=== PATIENT | male | born 1995 ===

== ENCOUNTER 2018-06-20 19:21 | Emergency (ER) | payer SELFPAY ==
[2018-06-20] MEDS ORDERED: Vancomycin 1 g Inj ONE (19:46)
--- NOTE | 2018-06-20 19:55 | ED PDOC ---
Upper Extremity Pain/Injury Time Seen by Provider: 06/20/18 19:35 Chief Complaint (Nursing): Upper Extremity Problem/Injury Chief Complaint (Provider): Upper Extremity Problem/Injury History Per: Patient History/Exam Limitations: no limitations Onset/Duration Of Symptoms: Days (x 3) Current Symptoms Are (Timing): Still Present Quality: "Pain" Additional Complaint(s): 22 year old male presents to the ED with a pimple on the posterior aspect of his right elbow associated with swelling, onset 3 days ago. Patient reports a history of similar symptoms in the past that were treated using antibiotics in the [place]. Denies fever. Tetanus UTD. PMD: none provided Past Medical History Reviewed: Historical Data, Nursing Documentation, Vital Signs Vital Signs: Last Vital Signs Temp 96.9 F L 06/20/18 19:31 Pulse 79 06/20/18 19:31 Resp 18 06/20/18 19:31 BP 134/70 06/20/18 19:31 Pulse Ox 99 06/20/18 19:31 - Medical History PMH: No Chronic Diseases - Family History Family History: States: Unknown Family Hx - Home Medications Home Medications: Ambulatory Orders Medication Instructions Recorded Cephalexin [Keflex] 500 mg PO QID #28 capsule 06/20/18 Sulfamethoxazole/Trimethoprim 2 tab PO BID #28 tab 06/20/18 [Bactrim DS 800 mg-160 mg] - Allergies Allergies/Adverse Reactions: Allergies Allergy/AdvReac Type Severity Reaction Status Date / Time No Known Allergies Allergy Verified 06/20/18 19:31 Review of Systems ROS Statement: Except As Marked, All Systems Reviewed And Found Negative Constitutional: Negative for: Fever Skin: Positive for: Other (pimple on right elbow with increased swelling) Physical Exam - Reviewed Nursing Documentation Reviewed: Yes Vital Signs Reviewed: Yes - Physical Exam Appears: Positive for: Non-toxic, No Acute Distress Head Exam: Positive for: ATRAUMATIC, NORMAL INSPECTION, NORMOCEPHALIC Skin: Positive for: Normal Color, Warm, Dry Eye Exam: Positive for: EOMI, Normal appearance, PERRL Neck: Positive for: Normal, Painless ROM, Supple Cardiovascular/Chest: Positive for: Regular Rate, Rhythm. Negative for: Murmur Respiratory: Positive for: CNT, Normal Breath Sounds Gastrointestinal/Abdominal: Positive for: Normal Exam, Soft Extremity: Positive for: Normal ROM (able to flex and extend elbow without difficulty ), Swelling (moderate swelling surrounding induration with minimal erythema noted), Other (2.75 cm region of induration noted) Neurologic/Psych: Positive for: Alert, Oriented (x 3). Negative for: Motor/ Sensory Deficits - ECG O2 Sat by Pulse Oximetry: 99 (RA) Pulse Ox Interpretation: Normal - Progress ED Course And Treament: verbal consent prior to procedure. abscess cleansed with betadiene. 18 Guage needle with attempted aspiration minimal serosanguinous fluid noted. dressed with nonadherent dressing. advised return to ED in 2-3 days for re-evaluation and I &D Medical Decision Making Medical Decision Makin:42 Plan: --Vancomycin 1 gm in NS IVPB Scribe Attestation: Documented by Leslie Bentley, acting as a scribe for Ash Wang PA-C Provider Scribe Attestation: All medical record entries made by the Scribe were at my direction and personally dictated by me. I have reviewed the chart and agree that the record accurately reflects my personal performance of the history, physical exam, medical decision making, and the department course for this patient. I have also personally directed, reviewed, and agree with the discharge instructions and disposition. Disposition - Clinical Impression Clinical Impression: Abscess, Cellulitis of right elbow - Patient ED Disposition Is Patient to be Admitted: No - Disposition Disposition: Routine/Home Disposition Time: 21:24 Condition: FAIR Additional Instructions: RETURN IN 2-3 DAYS FOR RE-EVALUATION OF RIGHT ELBOW. Prescriptions: Cephalexin [Keflex] 500 mg PO QID #28 capsule Sulfamethoxazole/Trimethoprim [Bactrim DS 800 mg-160 mg] 2 tab PO BID #28 tab Instructions: Cellulitis and Erysipelas (Skin Infections), Skin Abscess Forms: [facility] ED School/Work Excuse
[2018-06-20 21:41] VITALS: BP 119/95; PULSE 51; RESP 16; TEMP 99.1; O2SAT 100
== END 2018-06-20 21:41 | disposition home or self-care (01) ==
LOC: H.ER 19:21
DX: L03.113 Cellulitis of right upper limb (principal)

== ENCOUNTER 2018-06-21 14:32 | Inpatient (IN) | payer OTHER ==
[2018-06-21] MEDS ORDERED: Vancomycin 1 g Inj ONE (15:34)
--- NOTE | 2018-06-21 15:38 | ED PDOC ---
Upper Extremity Pain/Injury Time Seen by Provider: 06/21/18 14:37 Chief Complaint (Nursing): Upper Extremity Problem/Injury Chief Complaint (Provider): Right elbow swelling and pain History Per: Patient History/Exam Limitations: no limitations Onset/Duration Of Symptoms: Days (x1 week), Worse Since (this morning) Current Symptoms Are (Timing): Still Present Quality: Pressure Severity: Severe Pain Scale Rating Of: 9 Additional Complaint(s): Kiel Kerr, a 22 year old male with no significant past medical history, presents to the emergency room for evaluation of swelling and pain to his right elbow. Patient was seen in [facility] ED yesterday for similar symptoms and was treated with IV vancomycin and given a prescription of Keflex and Bactrim, which he has been compliant with since discharge. He notes that he noticed a pimple to his elbow 1 week ago that had been gradually enlarging. Patient reports multiple attempts at home to "pop" it were unsuccessful. Since an I&D was attempted in ED yesterday, he has had dramatically increased swelling and pain. Patient denies taking pain medication [employer], denies fever or chills. He reports significantly decreased range of motion to the joint since his ED visit yesterday. Patient has no other complaints at present. Patient's tetanus status is up to date. 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 PMD: none Past Medical History Reviewed: Historical Data, Nursing Documentation, Vital Signs Vital Signs: Last Vital Signs Temp 98.4 F 06/21/18 14:36 Pulse 66 06/21/18 14:36 Resp 16 06/21/18 14:36 BP 138/88 06/21/18 14:36 Pulse Ox 97 06/21/18 14:36 - Medical History PMH: No Chronic Diseases - Surgical History Surgical History: No Surg Hx - Family History Family History: States: Unknown Family Hx - Social History Drugs: Denies - Immunization History Hx Tetanus Toxoid Vaccination: Yes - Home Medications Home Medications: Ambulatory Orders Medication Instructions Recorded No Known Home Med 06/21/18 - Allergies Allergies/Adverse Reactions: Allergies Allergy/AdvReac Type Severity Reaction Status Date / Time No Known Allergies Allergy Verified 06/20/18 19:31 Review of Systems ROS Statement: Except As Marked, All Systems Reviewed And Found Negative Constitutional: Negative for: Fever, Chills Musculoskeletal: Positive for: Other (elbow pain, swelling) Physical Exam - Reviewed Nursing Documentation Reviewed: Yes Vital Signs Reviewed: Yes - Physical Exam Comments: GENERAL APPEARANCE: Patient is awake, alert, oriented x 3; uncomfortable appearing. Cradling right arm in flexion. SKIN: Warm, dry; (-) cyanosis. NECK: Supple, FROM RIGHT ELBOW: (+) diffuse tenderness, erythema and warmth (+) large effusion to right elbow. (-) distal neurovascular deficit. Small incision to posterior elbow with active purulent drainage. Significantly decreased ROM secondary to pain- unable to extend, supinate, or pronate; remainder of upper extremity: (- ) tenderness. Sensation and capillary refill intact. CHEST AND RESPIRATORY: (-) wheezing; (-) rales, (-) rhonchi, (-) rub; breath sounds equal bilaterally. Respirations even and nonlabored. HEART AND CARDIOVASCULAR: (-) irregularity NEURO AND PSYCH: Mental status as above. Gait: steady. Speech: clear. (-) facial asymmetry (-) aphasia - Laboratory Results Result Diagrams: 06/21/18 15:45 06/21/18 15:45 - ECG O2 Sat by Pulse Oximetry: 97 (RA) Pulse Ox Interpretation: Normal Medical Decision Making Medical Decision Making: Time: 14:37 Impression: abscess and cellulitis of right elbow Initial Plan: --IV access --CMP --CBC w/ differential --Partial thromboplastin time --Prothrombin time --Toradol 30 mg IVP --Blood culture --Wound culture --Xray elbow right 3 views --Re-evaluation 1525 -Consult with Dr. Barbour, orthopedic mental health practitioner due to concern for failed outpatient therapy. 16:00 -Consulted Dr. Barbour who recommends a CT of upper extremity, admission, and IV antibiotics. Dr Barbour expresses concern that patient was not referred to orthopedics yesterday during ED visit. -Consult placed to Dr Gill, medicine mental health practitioner. 1645 -Case discussed with Dr Gill, who is agreeable to admission. -CBC and CMP reviewed. No elevation of WBCs. Coag profile unremarkable. ESR: 8. -Patient agreeable to admission at this time. Arrangements made for admission. Vitals stable. 1705 XR reviewed, radiology report follows PROCEDURE: Radiographs of the right elbow. HISTORY: r/o osteomyelitis COMPARISON: None available. FINDINGS: BONES: Lucent line identified on a single view involving the radial cortex, likely vascular groove; correlate with physical exam to exclude point tenderness. The remainder the visualized osseous structures appear intact. JOINTS: No dislocation. SOFT TISSUES: Extensive severe soft tissue swelling. No evidence of radiopaque foreign body. JOINT EFFUSION: No significant joint effusion. OTHER FINDINGS: None. IMPRESSION: Extensive severe soft tissue swelling. Lucent line identified on a single view involving the radial cortex, likely vascular groove; correlate with physical exam to exclude point tenderness. Pending CT evaluation. [address] Barbour made aware of results at this time. Recommends NPO after midnight for OR in AM. 1934 CT reviewed, radiology report follows FINDINGS: Limitations: Lack of intravenous contrast. Bones/joints: No acute fracture. No dislocation. Few small well-corticated ossicles about joint along coronoid process and olecranon process. No definite cortical destruction/ erosions. No significant joint effusion (no elevation of fat pads). Soft tissues: Minimal skin thickening. Extensive edema/fluid within subcutaneous tissues. No discrete fluid collection within limits of examination. No soft tissue gas. IMPRESSION: 1. Soft tissue edema compatible with history of cellulitis. 2. No definite radiographic evidence of osteomyelitis or septic arthritis. If there remains clinical concern, consider MRI. Thank you for allowing us to participate in the care of your patient. Dictated and Authenticated by: Juan Alberto Newton MD 06/21/2018 7:34 PM Eastern Time ([place] & [place]) Dr Barbour made aware of CT results at this time. Scribe Attestation: Documented by Carmel Noe, acting as a scribe for Daniela Méndez PA-C. Provider Scribe Attestation: All medical record entries made by the Scribe were at my direction and personally dictated by me. I have reviewed the chart and agree that the record accurately reflects my personal performance of the history, physical exam, medical decision making, and the department course for this patient. I have also personally directed, reviewed, and agree with the discharge instructions and disposition. Disposition - Clinical Impression Clinical Impression: Abscess, elbow, Cellulitis of elbow - Patient ED Disposition Is Patient to be Admitted: Yes Discussed With : Everett Barbour III Doctor Will See Patient In The: Hospital Counseled Patient/Family Regarding: Studies Performed, Diagnosis - Disposition Disposition Time: 17:10 Condition: STABLE - Pt Status Changed To: Hospital Disposition Of: Inpatient - Admit Certification Admit to Inpatient:: After my assessment, the patient will require hospitalization for at least two midnights. This is because of the severity of symptoms shown, intensity of services needed, and/or the medical risk in this patient being treated as an outpatient. - POA Present On Arrival: None Results - Lab Results Lab Results: 06/21/18 06/21/18 06/21/18 16:25 15:45 15:45 WBC RBC Hgb Hct MCV MCH MCHC RDW Plt Count MPV Neut % (Auto) Lymph % (Auto) [place] % (Auto) Eos % (Auto) Baso % (Auto) Neut # (Auto) Lymph # (Auto) [place] # (Auto) Eos # (Auto) Baso # (Auto) ESR 8 PT 13.1 INR 1.2 APTT 31.2 Sodium 140 Potassium 4.4 Chloride 103 Carbon Dioxide 32 H Anion Gap 9 L BUN 14 Creatinine 1.0 Est GFR ( Amer) > 60 Est GFR (Non-Af Amer) > 60 Random Glucose 88 Calcium 9.3 Total Bilirubin 1.1 AST 22 ALT 25 Alkaline Phosphatase 65 Total Protein 7.2 Albumin 4.1 Globulin 3.1 Albumin/Globulin Ratio 1.3 06/21/18 15:45 WBC 10.5 RBC 4.28 L Hgb 14.1 Hct 40.2 MCV 93.9 MCH 32.8 H MCHC 35.0 RDW 12.5 Plt Count 187 MPV 9.3 Neut % (Auto) 74.1 Lymph % (Auto) 13.8 L [place] % (Auto) 11.6 H Eos % (Auto) 0.3 Baso % (Auto) 0.2 Neut # (Auto) 7.8 H Lymph # (Auto) 1.5 [place] # (Auto) 1.2 H Eos # (Auto) 0.0 Baso # (Auto) 0.0 ESR PT INR APTT Sodium Potassium Chloride Carbon Dioxide Anion Gap BUN Creatinine Est GFR ( Amer) Est GFR (Non-Af Amer) Random Glucose Calcium Total Bilirubin AST ALT Alkaline Phosphatase Total Protein Albumin Globulin Albumin/Globulin Ratio
[2018-06-21 16:11] LABS: ALB/GLOB RATIO 1.3 (1.0-2.1); ALBUMIN 4.1 g/dL (3.5-5.0); ALT/SGPT 25 U/L (21-72); AST/SGOT 22 U/L (17-59); BLOOD UREA NITROGEN 14 mg/dl (9-20); CALCIUM 9.3 mg/dL (8.4-10.2); GFR NON-AFRICAN AMERICAN > 60; INR 1.2; PROTHROMBIN TIME 13.1 Seconds (9.8-13.1)
[2018-06-21 16:13] LABS: BASO % 0.2 % (0.0-2.0); EOS % 0.3 % (0.0-4.0); HEMOGLOBIN 14.1 g/dL (12.0-18.0); LYMPH # 1.5 K/uL (1.0-4.3); LYMPH % 13.8 % (20.0-40.0); MEAN CELL VOLUME 93.9 fl (80.0-94.0); MEAN CORPUSCULAR HEMOGLOBIN 32.8 pg (27.0-31.0); MEAN PLATELET VOLUME 9.3 fl (7.2-11.7); MONO # 1.2 K/uL (0.0-0.8); MONO % 11.6 % (0.0-10.0); NEUT # 7.8 K/uL (1.8-7.0); NEUT % 74.1 % (50.0-75.0); NRBC % 0.1 % (0.0-0.0); RBC 4.28 Mil/uL (4.40-5.90); RED CELL DISTRIBUTION WIDTH 12.5 % (11.5-14.5); WHITE BLOOD COUNT 10.5 K/uL (4.8-10.8)
[2018-06-21 16:14] LABS: PARTIAL THROMBOPLASTIN TIME 31.2 Seconds (25.6-37.1)
--- NOTE | 2018-06-21 17:02 | RAD ---
PROCEDURE: Radiographs of the right elbow. HISTORY: r/o osteomyelitis COMPARISON: None available. FINDINGS: BONES: Lucent line identified on a single view involving the radial cortex, likely vascular groove; correlate with physical exam to exclude point tenderness. The remainder the visualized osseous structures appear intact. JOINTS: No dislocation. SOFT TISSUES: Extensive severe soft tissue swelling. No evidence of radiopaque foreign body. JOINT EFFUSION: No significant joint effusion. OTHER FINDINGS: None. IMPRESSION: Extensive severe soft tissue swelling. Lucent line identified on a single view involving the radial cortex, likely vascular groove; correlate with physical exam to exclude point tenderness.
[2018-06-22] MEDS ORDERED: Lidocaine 4% (Laryng-O-Jet) Kit MM ONE (06:40)
[2018-06-22] MEDS ORDERED: Propofol 10 mg/ml Inj (20 ML) ONE (06:40)
[2018-06-22] MEDS ORDERED: Rocuronium 10 mg/ml (5 ml) ONE (06:40)
[2018-06-22] MEDS ORDERED: Succinylcholine 200 mg/10 ml Inj IV ONE (06:40)
[2018-06-22] MEDS ORDERED: Dexamethasone 4 mg/1 ml ONE (06:43)
[2018-06-22] MEDS ORDERED: Bupivacaine HCl 0.5% PF (30 ml) Inj ONE (07:04)
[2018-06-22] MEDS ORDERED: Bacitracin Ointment 30 GM TUBE ONE (07:06)
[2018-06-22] MEDS ORDERED: GELATIN SPONGE,ABSORB/PORCINE 1 EACH SPONGE TP ONE (07:06)
[2018-06-22] MEDS ORDERED: EPINEPHrine 1 mg/ml (1:1000) Inj ONE (07:07)
[2018-06-22] MEDS ORDERED: Thrombin Topical 5,000 Int Units Spray Kit ONE (07:07)
[2018-06-22] MEDS ORDERED: Midazolam 2 MG/2 ML VIAL ONE ×2 (07:32→07:37)
--- NOTE | 2018-06-22 07:44 | CP.PCM.CON ---
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 pt presentys with drainage R elbow, olecranon bursa. Pt seen in ER Thursday treated and released and told to return to ER. Pt presents to ER yesterday with worsening of elbow. Pt dates HPI to two months prior when he abraded his elbow in [place]- pt treated with dermabond at [facility] and [facility]- never completely resolved Ptto be taken to OR this AM- dfor imncision drainage and elbow arthroscopy. possibility of later secondary surgeyr discussed; no promises/guarantees. Pt had at least 1 wk hx of swelling, paon and drainage prior to presenting to ER yesterday Past Patient History - Past Medical History & Family History Past Medical History?: No - Past Social History Drugs: Denies - MUSCULOSKELETAL/RHEUMATOLOGICAL Hx Falls: No - PSYCHIATRIC Hx Substance Use: No - SURGICAL HISTORY Hx Surgeries: No - ANESTHESIA Hx Anesthesia: No Meds Allergies/Adverse Reactions: Allergies Allergy/AdvReac Type Severity Reaction Status Date / Time No Known Allergies Allergy Verified 06/20/18 19:31 - Medications Medications: Current Medications Acetaminophen (Tylenol 325mg Tab) 650 mg PO Q6 PRN PRN Reason: Pain, moderate (4-7) Last Admin: 06/22/18 01:51 Dose: 650 mg Vancomycin HCl 1 gm/ Sodium (Chloride) 250 mls @ 250 mls/hr IVPB Q12H [id number] PRN Reason: Protocol Last Admin: 06/22/18 03:45 Dose: 250 mls/hr Physical Exam - Additional Findings Additional findings: systemic- wnl;please referto Dr Gill's hx and physiacal Musculoskekltal stance/gait- defrred pt with restricted ROM R elbow +erythema/ restricted ROM R elbow pt with well healed scars distal to point of olecrananon pt with draining olecranon bursa +erythema + swelling R elbow Results - Vital Signs Recent Vital Signs: Last Vital Signs Temp 98.7 F 06/22/18 06:00 Pulse 77 06/22/18 06:00 Resp 19 06/22/18 06:00 BP 124/60 06/22/18 06:00 Pulse Ox 97 06/22/18 06:00 - Labs Result Diagrams: 06/21/18 15:45 06/21/18 15:45 Labs: Laboratory Results - last 24 hr 06/21/18 06/21/18 06/21/18 15:45 15:45 15:45 WBC 10.5 RBC 4.28 L Hgb 14.1 Hct 40.2 MCV 93.9 MCH 32.8 H MCHC 35.0 RDW 12.5 Plt Count 187 MPV 9.3 Neut % (Auto) 74.1 Lymph % (Auto) 13.8 L [place] % (Auto) 11.6 H Eos % (Auto) 0.3 Baso % (Auto) 0.2 Neut # (Auto) 7.8 H Lymph # (Auto) 1.5 [place] # (Auto) 1.2 H Eos # (Auto) 0.0 Baso # (Auto) 0.0 ESR PT 13.1 INR 1.2 APTT 31.2 Sodium 140 Potassium 4.4 Chloride 103 Carbon Dioxide 32 H Anion Gap 9 L BUN 14 Creatinine 1.0 Est GFR ( Amer) > 60 Est GFR (Non-Af Amer) > 60 Random Glucose 88 Calcium 9.3 Total Bilirubin 1.1 AST 22 ALT 25 Alkaline Phosphatase 65 Total Protein 7.2 Albumin 4.1 Globulin 3.1 Albumin/Globulin Ratio 1.3 06/21/18 16:25 WBC RBC Hgb Hct MCV MCH MCHC RDW Plt Count MPV Neut % (Auto) Lymph % (Auto) [place] % (Auto) Eos % (Auto) Baso % (Auto) Neut # (Auto) Lymph # (Auto) [place] # (Auto) Eos # (Auto) Baso # (Auto) ESR 8 PT INR APTT Sodium Potassium Chloride Carbon Dioxide Anion Gap BUN Creatinine Est GFR ( Amer) Est GFR (Non-Af Amer) Random Glucose Calcium Total Bilirubin AST ALT Alkaline Phosphatase Total Protein Albumin Globulin Albumin/Globulin Ratio - Impressions Impression: Xray/ CT scan results noted - no evidence for osteomyelitis; fusiform swelling, with evidenc eof collection posterior aspect elbow(olecranon bursa) Assessment & Plan - Assessment and Plan (Free Text) Assessment: A-1) septic olecranon bursa 2) septic R elbow P- to OR fgor incision/drainage olecranono to OR for surg arthroscopy R elbow
[2018-06-22] MEDS ORDERED: Lactated Ringer's 1,000 ML IV ONE ×2 (08:10→08:45)
[2018-06-22] MEDS ORDERED: Lidocaine/Epi 1% 1:100000 20 ML IJ ONE (08:10)
[2018-06-22] MEDS ORDERED: Neostigmine 1:1000 (1 mg/ml) Inj ONE (08:31)
[2018-06-22 08:39] LABS: FLUID TYPE SYNOVIAL FLUID
--- NOTE | 2018-06-22 09:07 | CP.PCM.HP ---
History of Present Illness - History of Present Illness History of Present Illness: Pt was seen and examined at bedside with Dr. Gill 22 yo M with no sig pmhx presented to the ED with pain and swelling of R elbow. Recently seen at [facility] ER and treated with vanc and d/c on keflexa nd bactrim. However, symptoms did not improve. ED: XR revealed soft tissue swelling. CT: Cellulitis at dorsal and volar medial soft tissue. No periosteal changes or erosion to suggest osteomyelitis. No joint effusions. Degenerative calcifications or old avulsion/chip fracture sof posterior humeral ulnar joint. Ortho: Dr. Barbour consulted PMD: none pmhx: none Famhx: none surg: none soc: denies smoking, alcohol, illicit drugs Lives with father NKDA Present on Admission - Present on Admission Any Indicators Present on Admission: No History of DVT/PE: No History of Uncontrolled Diabetes: No Urinary Catheter: No Review of Systems - Constitutional Constitutional: As Per HPI - Cardiovascular Cardiovascular: absent: Chest Pain - Respiratory Respiratory: absent: Cough, Dyspnea - Gastrointestinal Gastrointestinal: absent: Abdominal Pain - Musculoskeletal Musculoskeletal: Deformity (R elbow pain.) - Neurological Neurological: absent: Abnormal Gait Past Patient History - Past Medical History & Family History Past Medical History?: No - Past Social History Smoking Status: Never Smoked Alcohol: None Drugs: Denies Home Situation {Lives}: With Family - CARDIAC Hx Cardiac Disorders: No - PULMONARY Hx Respiratory Disorders: No - NEUROLOGICAL Hx Neurological Disorder: No - HEENT Hx HEENT Problems: No - RENAL Hx Chronic Kidney Disease: No - ENDOCRINE/METABOLIC Hx Endocrine Disorders: No - HEMATOLOGICAL/ONCOLOGICAL Hx Blood Disorders: No - INTEGUMENTARY Hx Dermatological Problems: No - MUSCULOSKELETAL/RHEUMATOLOGICAL Hx Falls: No - GASTROINTESTINAL Hx Gastrointestinal Disorders: No - GENITOURINARY/GYNECOLOGICAL Hx Genitourinary Disorders: No - PSYCHIATRIC Hx Psychophysiologic Disorder: No Hx Substance Use: No - SURGICAL HISTORY Hx Surgeries: No - ANESTHESIA Hx Anesthesia: No Meds Allergies/Adverse Reactions: Allergies Allergy/AdvReac Type Severity Reaction Status Date / Time No Known Allergies Allergy Verified 06/20/18 19:31 Physical Exam - Constitutional Appears: Non-toxic - Eye Exam Eye Exam: EOMI - Respiratory Exam Respiratory Exam: Clear to Auscultation Bilateral, NORMAL BREATHING PATTERN. absent: Wheezes - Cardiovascular Exam Cardiovascular Exam: REGULAR RHYTHM, +S1, +S2 - GI/Abdominal Exam GI & Abdominal Exam: Normal Bowel Sounds, Soft. absent: Tenderness - Neurological Exam Neurological exam: Alert, CN II-XII Intact, Oriented x3 - Psychiatric Exam Psychiatric exam: Normal Affect, Normal Mood Results - Vital Signs Recent Vital Signs: Last Vital Signs Temp 98.7 F 06/22/18 06:00 Pulse 77 06/22/18 06:00 Resp 19 06/22/18 06:00 BP 124/60 06/22/18 06:00 Pulse Ox 97 06/22/18 06:00 - Labs Result Diagrams: 06/21/18 15:45 06/21/18 15:45 Labs: Laboratory Results - last 24 hr 06/21/18 06/21/18 06/21/18 15:45 15:45 15:45 WBC 10.5 RBC 4.28 L Hgb 14.1 Hct 40.2 MCV 93.9 MCH 32.8 H MCHC 35.0 RDW 12.5 Plt Count 187 MPV 9.3 Neut % (Auto) 74.1 Lymph % (Auto) 13.8 L [place] % (Auto) 11.6 H Eos % (Auto) 0.3 Baso % (Auto) 0.2 Neut # (Auto) 7.8 H Lymph # (Auto) 1.5 [place] # (Auto) 1.2 H Eos # (Auto) 0.0 Baso # (Auto) 0.0 ESR PT 13.1 INR 1.2 APTT 31.2 Sodium 140 Potassium 4.4 Chloride 103 Carbon Dioxide 32 H Anion Gap 9 L BUN 14 Creatinine 1.0 Est GFR ( Amer) > 60 Est GFR (Non-Af Amer) > 60 Random Glucose 88 Calcium 9.3 Total Bilirubin 1.1 AST 22 ALT 25 Alkaline Phosphatase 65 Total Protein 7.2 Albumin 4.1 Globulin 3.1 Albumin/Globulin Ratio 1.3 Fluid Type 06/21/18 06/22/18 16:25 08:30 WBC RBC Hgb Hct MCV MCH MCHC RDW Plt Count MPV Neut % (Auto) Lymph % (Auto) [place] % (Auto) Eos % (Auto) Baso % (Auto) Neut # (Auto) Lymph # (Auto) [place] # (Auto) Eos # (Auto) Baso # (Auto) ESR 8 PT INR APTT Sodium Potassium Chloride Carbon Dioxide Anion Gap BUN Creatinine Est GFR ( Amer) Est GFR (Non-Af Amer) Random Glucose Calcium Total Bilirubin AST ALT Alkaline Phosphatase Total Protein Albumin Globulin Albumin/Globulin Ratio Fluid Type Synovial fluid Assessment & Plan (1) Abscess, elbow Status: Acute (2) Cellulitis of right elbow Status: Acute - Assessment and Plan (Free Text) Plan: 22 yo M with no sig pmhx admitted for septic right elbow Orthopedic Surgeon: Dr. Barbour: Plan for Arhroscopy of elbow and debridement of septic elbow Continue with treatment/care plan as ordered Pt Medically optimized for surgery. Case dw Dr. Bridget Fung MD PGY2
--- NOTE | 2018-06-22 09:08 | PCM.SURG1 ---
Surgeon's Initial Post Op Note - Surgeon's Notes Surgeon: Km Cycle Consultant: 1st assist Ruslan Garcia, 2nd assist Javier Amaro Type of Anesthesia: General Endo Anesthesia Administered By: DR Slade Pre-Operative Diagnosis: septic R elbow. septic olecranon bursa Operative Findings: septic olecrananon bursa. spetic r elbow Post-Operative Diagnosis: septic r elbow. synvoitis R elbow. septic olecrananon bursa R elbow Operation Performed: arthroscopic synvoectomy R elbow. arthroscopic irrigation debridement R elbow. incision drainge R olecrananon bursa. partial bursectomy R elbow. irrigation/debridement r olecrananon bursa. excsisonm skin/ subcutaeous tissue and muscle. applx long arm posterior splint Specimen/Specimens Removed: synovium/skin subcutaneous [id number] muscle. olecrananon bursa (partial) Estimated Blood Loss: EBL {In ML}: 10 Blood Products Given: N/A Drains Used: No Drains Post-Op Condition: Good Date of Surgery/Procedure: 06/22/18 Time of Surgery/Procedure: 08:10 (time in room/anaesthesia induction time 730)
[2018-06-22] MEDS ORDERED: Desflurane Inhalation Anesthetic Liq (240 ml) ONE (09:13)
[2018-06-22] MEDS ORDERED: HYDROmorphone 0.5 mg/0.5 ml ISec IVP PRN (09:34)
--- NOTE | 2018-06-22 09:36 | CT ---
Date of service: 06/21/2018 PROCEDURE: RIGHT ELBOW CT WITHOUT CONTRAST HISTORY: concern for septic joint COMPARISON: Right elbow radiographs 06/21/2018. TECHNIQUE: A volumetric CT acquisition was performed through the right elbow without intravenous contrast as requested. Reformatted datasets provided in multiple planes using various algorithms. Contrast Dose: None Radiation dose:Total exam DLP = 169.35 mGy-cm. This CT exam was performed using one or more of the following dose reduction techniques: Automated exposure control, adjustment of the mA and/or kV according to patient size, and/or use of iterative reconstruction technique. FINDINGS: There are small bony elements identified posterior to the capitellum of the distal humerus which appear well corticated but are somewhat irregular in shape and are felt to represent heterotopic soft tissue or old chronic avulsion/ chip fracture fragments. No definitive acute fracture is appreciable. Degenerative osteophytes are seen local to it at the posterior margins of the humeral ulnar articulation. The radial head is intact. Prominent edema is seen at the dorsal as well as volar elbow soft tissues compatible with edema. No periosteal reaction or significant joint effusion appreciable. No elevation the anterior posterior fat pads. No retained main foreign body or emphysema soft tissue change. IMPRESSION: Cellulitis pattern is seen at the dorsal as well as volar medial soft tissues without periosteal changes or erosion to suggest osteomyelitis. No joint effusions are appreciable. Clinically correlate further. Degenerative calcifications or old avulsion/ chip fractures of the posterior humeral ulnar joint. No definite acute fracture or dislocation identified. Concordant preliminary report from [facility], 06/21/2018.
[2018-06-22 09:37] LABS: SF GROSS APPEARANCE TURBID (CLEAR); SYNOVIAL FLUID COMMENT MODERATELY BLOODY
[2018-06-22 09:38] LABS: SYNOVIAL FLUID MONO/MACROPHAGE 12 % (0-0)
--- NOTE | 2018-06-22 09:38 | PCM.ANESB4 ---
Infraclavicular Block - Femoral Nerve Block Date of Procedure: 06/22/18 Anesthesiologist: Jaya Pre-Procedure Diagnosis: Septic right elbow Post-Procedure Diagnosis: Same Procedure Performed: Brachial Plexus at the Infraclavicular area Right - Procedure Infraclavicular Block: The procedure was explained to the patient that it is for the post-operative pain management. Consent was obtained after a thorough discussion with the patient regarding the benefits and possible complications of local anesthetic block of the brachial plexus at the infraclavicular area. The patient was brought to the operating room and standard monitors were applied. Time-out was held with the circulating nurse to confirm the correct surgery and the appropriate block. After applying oxygen by nasal cannula and administering IV Sedation, patient's head was gently rotated away from the operative __right _ shoulder and the area medial to the coracoid process and inferior to the clavicle was carefully palpated. The ultrasound transducer was then applied to the skin in the transverse plane and the brachial plexus was visualized surrounding the axillary artery and deep to the pectoralis major and minor muscles. After thorough identification, this area was prepped with Chloraprep and 1 % Lidocaine was injected subcutaneously for topical anesthesia. At this point, a #21 gauge Stimuplex 4-inch needle was inserted cephalad to the ultrasound transducer and inferior to the clavicle in-plane towards the posterior aspect of the axillary artery. Needle advancement was performed carefully under ultrasound visualization. Nerve stimulator was used and twitch of the affected extremity including fingers, hand, wrist and elbow was obtained at current of __0.5___MA. After repeated negative aspiration, ___2__cc of __0.5_ __% ____bupivacaine with 1:200,000 epinephrine was injected and this was followed with _28 cc of __0.5 % ___bupivacaine with 1:200, 000 epinephrine . Under ultrasound guidance the local anesthetics were observed surrounding the cords of the brachial plexus. The needle was removed intact and sterile dressing was applied. The patient had stable vital signs, was conscious and in no apparent distress. The patient tolerated the infraclavicular block of the brachial plexus well with stable vital signs was prepared for subsequent surgery.
[2018-06-22] MEDS ORDERED: Lactated Ringer's 1,000 ML IV SCH (09:45)
--- NOTE | 2018-06-22 14:56 | OP ---
PROCEDURE DATE: 06/22/2018 PREOPERATIVE DIAGNOSES: 1. Septic right olecranon bursa. 2. Erupted pustule on the posterior aspect of the olecranon bursa. 3. Septic right elbow. POSTOPERATIVE DIAGNOSES: 1. Septic right olecranon bursa. 2. Erupted pustule on the posterior aspect of the olecranon bursa. 3. Septic right elbow. OPERATIVE FINDINGS: 1. Synovitis of the right elbow joint. 2. Sepsis of the right elbow joint. 3. Septic olecranon bursa. 4. Septic olecranon bursitis. PROCEDURES PERFORMED: 1. Surgical arthroscopy, extensive synovectomy of the right elbow joint, particularly the radiohumeral joint. 2. Surgical arthroscopy, incision and drainage of the right elbow arthroscopically. 3. Excision of subtotal right olecranon bursa. 4. Incision and drainage of the septic right olecranon bursa. 5. Excision of skin and subcutaneous tissue and muscle. 6. Application of Umberto Mckeon compression dressing and posterior splint. SURGEON: Everett Barbour MD FISH NET MAKER: TG Lopez, certified registered nursing starch treating assistant. SECOND ENGLISH HORN PLAYER: Javier Enriquez PA-C ANESTHESIA: General endotracheal anesthesia by Dr. Hardeep Lake. COMPLICATIONS: No complications. DRAINS: No drains. 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 It was treated courtside with no irrigation and with closure with Dermabond and antibiotics. The patient presented on Thursday to [facility] with an eruption and draining olecranon bursa. The patient was treated by the PHUONG and released and told to come back to the emergency room. The patient came back to the emergency room on Thursday and the patient was admitted as an emergency. The recent eruption of the olecranon bursa and the fusiform swelling of the right elbow is about eight days in progression and the initial injury of course happened two months ago in a basketball game in the [place]. OPERATIVE PROCEDURE: Pros, cons, risks and benefits of surgical approach were discussed at length with the patient. Possibility of mechanical failure, infection, secondary or tertiary surgery was discussed including nerve injury and possibility of stiffness were discussed. The patient can no longer withstand the discomfort and wished the surgery to be accomplished as an emergency. The patient was taken to Surgery at 06:00 a.m. and the surgery was begun promptly. After having obtained informed consent, after the satisfactory induction of general endotracheal anesthesia, after having identified side, site and procedure, critical pause/time-out, the patient identified as Kiel Kerr in the supine position with all bony prominences well padded. The right upper extremity was prepped and free draped in the usual fashion for upper extremity surgery. A tourniquet had been applied, but was not yet inflated. The olecranon bursa was incised and drained. Using #10 blade, an incision was carried out three fingerbreadths distal to the olecranon and three fingerbreadths proximal. The skin incision was carried down through the skin and subcutaneous tissue. There was found to be an immediate egress of pus. This was sent immediately for stat Gram stain, number of white cells per high-power field, aerobic, anaerobic, AFB and fungal cultures. At this point in time, an ellipse of skin, subcutaneous tissue and muscle were excised in the posterior aspect of the elbow. This having been accomplished, this was sent for specimen. At this point in time, the olecranon bursa, which was found to be septic, was identified and a subtotal olecranon bursectomy was accomplished using the knife. Great care was taken. At this point in time, the wound was thoroughly irrigated. Excision of skin and subcutaneous tissue and muscle had been accomplished. Subtotal bursectomy had been accomplished. Incision and drainage and culture and biopsy of the tissue were accomplished as well. At this point in time, with the elbow flexed and with the forearm pronated to avoid injury to the radial nerve, the radiohumeral joint was identified and three portals were accomplished using #18 gauge spinal needle, followed by #11 blade and followed by spreading. The location of the joint was found by pronation and supination. Great care was taken to be cognizant of the posterior interosseous branch of the radial nerve. This having been accomplished, the arthroscope was initially introduced. There was found to be aggressive synovitis. With the arthroscope in the radiohumeral joint, first in the inferior portal using the arthroscopic shaver, the 2.7 mm arthroscope was employed using the shaver, a partial synovectomy was accomplished. Partial synovectomy having been completed, with the arthroscope in the inferior portal, an aggressive synovectomy was accomplished. Great care was taken to avoid injury to any neurocirculatory structures. The portals were changed several times with the arthroscope introduced into each portal and synovectomy having been accomplished. After synovectomy was accomplished, thorough irrigation with the arthroscopic fluid was accomplished and attention was now turned back to the olecranon bursa incision and a thorough irrigation with antibiotic impregnated saline was accomplished. The wound was thoroughly irrigated. Closure of the bursa was done with interrupted Vicryl and nneka. The arthroscopic portals were closed with interrupted Vicryl and nylon. Umberto Mckeon compression dressing and posterior splint were applied. Everett Barbour MD
[2018-06-22] MEDS: Oxycodone/Acetaminophen 5/325 mg Tab PO PRN (20:09)
--- NOTE | 2018-06-22 21:05 | CP.PCM.PN ---
Subjective - Date & Time of Evaluation Date of Evaluation: 06/22/18 Time of Evaluation: 21:00 - Subjective Subjective: I D NOTE PATIENT EXAMINED .EMR REVIEWED ANTIBIOTICS ORDERED WILL NEED 4 TO 6WEEKS IV ANTIBIOTIC RX Objective - Vital Signs/Intake and Output Vital Signs (last 24 hours): Temp Pulse Resp BP Pulse Ox 97.3 F L 51 L 18 106/57 L 98 06/22/18 16:16 06/22/18 16:16 06/22/18 16:16 06/22/18 16:16 06/22/18 16:16 Intake and Output: 06/22/18 06/23/18 18:59 06:59 Intake Total 1700 Balance 1700 - Medications Medications: Current Medications Acetaminophen (Tylenol 325mg Tab) 650 mg PO Q6 PRN PRN Reason: Pain, moderate (4-7) Last Admin: 06/22/18 01:51 Dose: 650 mg Vancomycin HCl 1 gm/ Sodium (Chloride) 250 mls @ 250 mls/hr IVPB Q12H RIKKI PRN Reason: Protocol Last Admin: 06/22/18 18:30 Dose: 250 mls/hr Lactated Ringer's (Lactated Ringer's) 1,000 mls @ 100 mls/hr IV .Q10H RIKKI Cefepime HCl 1 gm/ Sodium (Chloride) 100 mls @ 100 mls/hr IVPB Q12 RIKKI PRN Reason: Protocol Morphine Sulfate (Morphine) 2 mg IVP Q4 PRN PRN Reason: Pain, severe (8-10) Oxycodone/Acetaminophen (Percocet 5/325 Mg Tab) 2 tab PO Q4 PRN PRN Reason: Pain, moderate (4-7) Stop: 06/25/18 10:30 Last Admin: 06/22/18 20:09 Dose: 2 tab - Labs Labs: 06/21/18 15:45 06/21/18 15:45 PT 13.1 Seconds (9.8-13.1) 06/21/18 15:45 INR 1.2 06/21/18 15:45 APTT 31.2 Seconds (25.6-37.1) 06/21/18 15:45
[2018-06-22] MEDS: Cefepime 1 GM in Sodium Chloride 0.9% 100 ML IVPB SCH (21:31)
[2018-06-23] MEDS: Oxycodone/Acetaminophen 5/325 mg Tab PO PRN ×3 (00:07→18:58)
--- NOTE | 2018-06-23 04:49 | CON ---
DATE: 06/22/2018 INFECTIOUS DISEASE CONSULT HISTORY OF PRESENT ILLNESS: He is a 22-year-old male who has no significant past medical history, who came to the emergency room with pain and swelling of the right elbow. He had apparently injured his elbow playing basketball, smashing his elbow on the backboard while in the [place]. While he was there, he had a laceration distal to the elbow, and it was apparently closed with surgical adhesive Did not have significant problems, but then when he came home, he noted he had some swelling of the elbow and pain and also noted a pustule on the elbow. He went to the emergency room and had some initial treatment and when he did not get better, he came back to the hospital and was admitted by the hospital. Today, he underwent surgery by Orthopedics, Dr. Barbour, and it was noted to have a septic right olecranon bursa, erupted pustule on the posterior aspect of the olecranon bursa and a septic right elbow with synovitis at the right elbow joint, sepsis of the right elbow joint. He had an arthroscopy with extensive synovectomy of the right elbow joint, particularly the right radial humeral joint. There was drainage of the right elbow also. PHYSICAL EXAMINATION: GENERAL: He is alert, cooperative, and oriented to time and place. HEENT: Within normal limits. NECK: Supple. LUNGS: Clear. HEART: Regular sinus rhythm. ABDOMEN: Soft. Positive bowel sounds. EXTREMITIES: The left upper extremity and both lower extremities are all within normal limits. The right upper extremity is with a surgical dressing. LABORATORY DATA: WBC is 10.5, hemoglobin 14, polys of 74, sed rate is 8, platelets of 187. Renal function is within normal limits. Cultures are pending. At the present time, we will treat him with vancomycin 1 g IV piggyback every 12 hours, and Maxipime 1 g IV piggyback every 12 hours. We will follow. Blanco Alvarado MD [facility]PITALRuslan
[2018-06-23 06:33] LABS: BASO % 0.1 % (0.0-2.0); HEMOGLOBIN 12.6 g/dL (12.0-18.0); LYMPH # 0.9 K/uL (1.0-4.3); LYMPH % 6.1 % (20.0-40.0); MEAN CELL VOLUME 94.7 fl (80.0-94.0); MEAN CORPUSCULAR HEMOGLOBIN 32.7 pg (27.0-31.0); MEAN CORPUSCULAR HGB CONC 34.6 g/dL (33.0-37.0); MEAN PLATELET VOLUME 9.9 fl (7.2-11.7); MONO # 1.6 K/uL (0.0-0.8); MONO % 10.4 % (0.0-10.0); NEUT # 12.5 K/uL (1.8-7.0); NEUT % 83.4 % (50.0-75.0); NRBC % 0.1 % (0.0-0.0); PLATELET COUNT 195 K/uL (130-400); RBC 3.84 Mil/uL (4.40-5.90); RED CELL DISTRIBUTION WIDTH 12.1 % (11.5-14.5)
[2018-06-23 06:44] LABS: BLOOD UREA NITROGEN 14 mg/dl (9-20); CALCIUM 9.1 mg/dL (8.4-10.2); GFR NON-AFRICAN AMERICAN > 60
--- NOTE | 2018-06-23 08:54 | CP.PCM.PN ---
Subjective - Date & Time of Evaluation Date of Evaluation: 06/23/18 Time of Evaluation: 07:30 - Subjective Subjective: Patient seen and examined at bedside comfortable. C/o soreness at surgical site otherwise pain controlled with meds. Able to be OOB without difficulties. Disappointed at possible inability to return to basketball season. Denies CP/SOB /dizziness. Objective - Vital Signs/Intake and Output Vital Signs (last 24 hours): Temp Pulse Resp BP Pulse Ox 97.6 F 71 19 122/66 99 06/23/18 08:15 06/23/18 08:15 06/23/18 08:15 06/23/18 08:15 06/23/18 08:15 Intake and Output: 06/23/18 06/23/18 06:59 18:59 Intake Total 1000 Balance 1000 - Medications Medications: Current Medications Acetaminophen (Tylenol 325mg Tab) 650 mg PO Q6 PRN PRN Reason: Pain, moderate (4-7) Last Admin: 06/22/18 01:51 Dose: 650 mg Vancomycin HCl 1 gm/ Sodium (Chloride) 250 mls @ 250 mls/hr IVPB Q12H RIKKI PRN Reason: Protocol Last Admin: 06/22/18 18:30 Dose: 250 mls/hr Lactated Ringer's (Lactated Ringer's) 1,000 mls @ 100 mls/hr IV .Q10H RIKKI Cefepime HCl 1 gm/ Sodium (Chloride) 100 mls @ 100 mls/hr IVPB Q12 RIKKI PRN Reason: Protocol Last Admin: 06/22/18 21:31 Dose: 100 mls/hr Morphine Sulfate (Morphine) 2 mg IVP Q4 PRN PRN Reason: Pain, severe (8-10) Last Admin: 06/23/18 02:27 Dose: 2 mg Oxycodone/Acetaminophen (Percocet 5/325 Mg Tab) 2 tab PO Q4 PRN PRN Reason: Pain, moderate (4-7) Stop: 06/25/18 10:30 Last Admin: 06/23/18 03:31 Dose: 2 tab - Labs Labs: 06/23/18 05:20 06/23/18 05:20 PT 13.1 Seconds (9.8-13.1) 06/21/18 15:45 INR 1.2 06/21/18 15:45 APTT 31.2 Seconds (25.6-37.1) 06/21/18 15:45 - Extremities Exam Additional comments: RUE: Posterior slint intact, elevated to IV pole sensation intact MN/UN/RN motor intact MN/UN/RN 2 sec cap refill Assessment and Plan (1) Septic olecranon bursitis of right elbow Assessment & Plan: POD #1 s/p R elbow I&D and arthroscopy -pain control -elevate to IV pole -abx as per ID, may need PICC -ER cultures reveal MRSA however this may be contaminant due to nature of collection in ER environment. Awaiting OR cultures which are more reliable. -OOB, PT/OT NWB RUE -above d/w Dr. Barbour in agreement Status: Acute
--- NOTE | 2018-06-23 09:14 | CP.PCM.PN ---
<AntonietaBradley - Last Filed: 06/23/18 14:35> Subjective - Date & Time of Evaluation Date of Evaluation: 06/23/18 Time of Evaluation: 07:30 - Subjective Subjective: Pt seen and examined at bedside with Dr. Gill. Denies acute events overnight Reports some discomfort at surgical site but tolerable Able to ambulate. tolerating po diet Objective - Vital Signs/Intake and Output Vital Signs (last 24 hours): Temp Pulse Resp BP Pulse Ox 97.6 F 71 19 122/66 99 06/23/18 08:15 06/23/18 08:15 06/23/18 08:15 06/23/18 08:15 06/23/18 08:15 Intake and Output: 06/23/18 06/23/18 06:59 18:59 Intake Total 1000 Balance 1000 - Medications Medications: Current Medications Acetaminophen (Tylenol 325mg Tab) 650 mg PO Q6 PRN PRN Reason: Pain, moderate (4-7) Last Admin: 06/22/18 01:51 Dose: 650 mg Vancomycin HCl 1 gm/ Sodium (Chloride) 250 mls @ 250 mls/hr IVPB Q12H RIKKI PRN Reason: Protocol Last Admin: 06/22/18 18:30 Dose: 250 mls/hr Lactated Ringer's (Lactated Ringer's) 1,000 mls @ 100 mls/hr IV .Q10H RIKKI Cefepime HCl 1 gm/ Sodium (Chloride) 100 mls @ 100 mls/hr IVPB Q12 RIKKI PRN Reason: Protocol Last Admin: 06/22/18 21:31 Dose: 100 mls/hr Morphine Sulfate (Morphine) 2 mg IVP Q4 PRN PRN Reason: Pain, severe (8-10) Last Admin: 06/23/18 02:27 Dose: 2 mg Oxycodone/Acetaminophen (Percocet 5/325 Mg Tab) 2 tab PO Q4 PRN PRN Reason: Pain, moderate (4-7) Stop: 06/25/18 10:30 Last Admin: 06/23/18 03:31 Dose: 2 tab - Labs Labs: 06/23/18 05:20 06/23/18 05:20 PT 13.1 Seconds (9.8-13.1) 06/21/18 15:45 INR 1.2 09/10/18 15:45 APTT 31.2 Seconds (25.6-37.1) 06/21/18 15:45 - Constitutional Appears: Well, No Acute Distress - Eye Exam Eye Exam: EOMI - Respiratory Exam Respiratory Exam: Clear to Ausculation Bilateral, NORMAL BREATHING PATTERN. absent: Wheezes - Cardiovascular Exam Cardiovascular Exam: REGULAR RHYTHM, +S1, +S2 - GI/Abdominal Exam GI & Abdominal Exam: Soft, Normal Bowel Sounds. absent: Tenderness - Extremities Exam Extremities Exam: absent: Calf Tenderness - Neurological Exam Neurological Exam: Alert, Awake, CN II-XII Intact, Oriented x3 - Psychiatric Exam Psychiatric exam: Normal Affect, Normal Mood Assessment and Plan (1) Abscess, elbow Status: Acute (2) Cellulitis of right elbow Status: Acute (3) Microcytic anemia Status: Acute - Assessment and Plan (Free Text) Plan: Ortho: Dr. Barbour on board Anemia noted: f/u iron studies for microcytic anemia Continue with current treatment/care plan as ordered ID: Dr. Alvarado Pt will need PICC line for possible 4-6 weeks of IVABX Case Dw Dr. Bridget Fung MD PGY2 <Hilton Gill - Last Filed: 06/24/18 07:40> Objective - Vital Signs/Intake and Output Vital Signs (last 24 hours): Temp Pulse Resp BP Pulse Ox 98.3 F 55 L 20 146/62 99 06/23/18 23:53 06/23/18 23:53 06/23/18 23:53 06/23/18 23:53 06/23/18 23:53 - Medications Medications: Current Medications Acetaminophen (Tylenol 325mg Tab) 650 mg PO Q6 PRN PRN Reason: Pain, moderate (4-7) Last Admin: 06/22/18 01:51 Dose: 650 mg Vancomycin HCl 1 gm/ Sodium (Chloride) 250 mls @ 250 mls/hr IVPB Q12H RIKKI PRN Reason: Protocol Last Admin: 06/24/18 05:51 Dose: 250 mls/hr Lactated Ringer's (Lactated Ringer's) 1,000 mls @ 100 mls/hr IV .Q10H RIKKI Cefepime HCl 1 gm/ Sodium (Chloride) 100 mls @ 100 mls/hr IVPB Q12 IRKKI PRN Reason: Protocol Last Admin: 06/23/18 20:49 Dose: 100 mls/hr Lactobacillus Acidophilus (Bacid Acidophilus) 1 cap PO BID RIKKI Last Admin: 06/23/18 18:58 Dose: 1 cap Morphine Sulfate (Morphine) 2 mg IVP Q4 PRN PRN Reason: Pain, severe (8-10) Last Admin: 06/23/18 15:40 Dose: 2 mg Oxycodone/Acetaminophen (Percocet 5/325 Mg Tab) 2 tab PO Q4 PRN PRN Reason: Pain, moderate (4-7) Stop: 06/25/18 10:30 Last Admin: 06/24/18 05:09 Dose: 2 tab - Labs Labs: 06/24/18 05:30 06/24/18 05:30 PT 13.1 Seconds (9.8-13.1) 06/21/18 15:45 INR 1.2 06/21/18 15:45 APTT 31.2 Seconds (25.6-37.1) 06/21/18 15:45 Assessment and Plan - Assessment and Plan (Free Text) Plan: Patient was personally seen and examined by me in rounds with residents. Available labs and diagnostic data reviewed. Case, Patient's condition and management plan discussed with residents in rounds. Agree with resident's progress note. Plan: As ordered.
[2018-06-23 09:37] LABS: IRON 23 ug/dL (49-181)
[2018-06-23] MEDS: Cefepime 1 GM in Sodium Chloride 0.9% 100 ML IVPB SCH ×2 (09:42→20:49)
[2018-06-23 09:46] LABS: % IRON SATURATION 9 % (20-55); TOTAL IRON BINDING CAPACITY 263 ug/dL (250-450)
[2018-06-23 10:34] LABS: LYMPHOCYTE 7 % (20-50); MONOCYTE 8 % (0-10); NEUTROPHIL 85 % (42-75); PLATELET ESTIMATE NORMAL (NORMAL); TOTAL CELLS COUNTED 100
[2018-06-23 11:39] LABS: ERYTHROCYTE SEDIMENTATION RATE 17 mm/hr (0-15)
[2018-06-23] MEDS ORDERED: Lidocaine 1% 5ml Abboject ONE (13:18)
[2018-06-23] MEDS: Lactobacillus Acidophilus 500 MU Cap PO SCH (18:58)
[2018-06-24] MEDS: Oxycodone/Acetaminophen 5/325 mg Tab PO PRN ×4 (01:34→15:57)
[2018-06-24 06:35] LABS: HEMOGLOBIN 12.1 g/dL (12.0-18.0); MEAN CELL VOLUME 95.4 fl (80.0-94.0); MEAN CORPUSCULAR HEMOGLOBIN 32.5 pg (27.0-31.0); MEAN CORPUSCULAR HGB CONC 34.1 g/dL (33.0-37.0); RBC 3.72 Mil/uL (4.40-5.90); RED CELL DISTRIBUTION WIDTH 12.1 % (11.5-14.5); WHITE BLOOD COUNT 7.8 K/uL (4.8-10.8)
[2018-06-24 06:51] LABS: BLOOD UREA NITROGEN 14 mg/dl (9-20); CALCIUM 8.8 mg/dL (8.4-10.2); GFR NON-AFRICAN AMERICAN > 60
[2018-06-24] MEDS: Lactobacillus Acidophilus 500 MU Cap PO SCH ×2 (09:49→16:01)
[2018-06-24] MEDS: Cefepime 1 GM in Sodium Chloride 0.9% 100 ML IVPB SCH (09:51)
--- NOTE | 2018-06-24 12:59 | VASCULAR ---
PROCEDURE: Date of procedure: 06/23/2018 Procedure: 1. Placement of a left arm PICC with ultrasound and fluoroscopic guidance, CPT 45148 2. PICC tip confirmation with spot radiograph and is in the superior vena cava Medications: 1 percent lidocaine Total Fluoro time: 21.7 seconds Radiation: 3.07 MGy EBL: 3 cc HISTORY: Infection requiring long-term IV antibiotics TECHNIQUE: Following informed consent and procedure time-out, the patient placed supine on the interventional table and the left arm prepped and draped in the usual sterile fashion. Ultrasound showed a patent and compressible left basilic vein. After the skin was anesthetized with lidocaine, the basilic vein was accessed with micro micropuncture technique using ultrasound guidance. A guidewire was then advanced under fluoroscopic guidance into the superior vena cava. An image documenting ultrasound guidance for vascular access was permanently saved. The length of a single-lumen 4 Fijian PICC was trimmed to 48 cm and advanced through a peel-away sheath. The PICC was position with tip of PICC confirm a spot radiograph the superior vena cava. The PICC was secured to the patient's skin. The PICC was flushed. A biopatch and sterile dressing was applied. IMPRESSION: Placement of a single-lumen 4 Fijian PICC left basilic vein trimmed to 48 cm. The tip of the PICC is confirmed with spot radiograph and is in the superior vena cava.
--- NOTE | 2018-06-24 13:23 | CP.PCM.PN ---
Subjective - Date & Time of Evaluation Date of Evaluation: 06/24/18 Time of Evaluation: 07:30 Objective - Vital Signs/Intake and Output Vital Signs (last 24 hours): Temp Pulse Resp BP Pulse Ox 97.6 F 86 20 113/73 99 06/24/18 08:40 06/24/18 08:40 06/24/18 08:40 06/24/18 08:40 06/24/18 08:40 - Medications Medications: Current Medications Acetaminophen (Tylenol 325mg Tab) 650 mg PO Q6 PRN PRN Reason: Pain, moderate (4-7) Last Admin: 06/22/18 01:51 Dose: 650 mg Vancomycin HCl 1 gm/ Sodium (Chloride) 250 mls @ 250 mls/hr IVPB Q12H RIKKI PRN Reason: Protocol Last Admin: 06/24/18 05:51 Dose: 250 mls/hr Lactated Ringer's (Lactated Ringer's) 1,000 mls @ 100 mls/hr IV .Q10H RIKKI Ertapenem 1 gm/ Sodium (Chloride) 100 mls @ 100 mls/hr IVPB DAILY RIKKI PRN Reason: Protocol Lactobacillus Acidophilus (Bacid Acidophilus) 1 cap PO BID RIKKI Last Admin: 06/24/18 09:49 Dose: 1 cap Morphine Sulfate (Morphine) 2 mg IVP Q4 PRN PRN Reason: Pain, severe (8-10) Last Admin: 06/23/18 15:40 Dose: 2 mg Oxycodone/Acetaminophen (Percocet 5/325 Mg Tab) 2 tab PO Q4 PRN PRN Reason: Pain, moderate (4-7) Stop: 06/25/18 10:30 Last Admin: 06/24/18 10:41 Dose: 2 tab - Labs Labs: 06/24/18 05:30 06/24/18 05:30 PT 13.1 Seconds (9.8-13.1) 06/21/18 15:45 INR 1.2 06/21/18 15:45 APTT 31.2 Seconds (25.6-37.1) 06/21/18 15:45 Assessment and Plan (1) Abscess, elbow Status: Acute (2) Cellulitis of right elbow Status: Acute (3) Microcytic anemia Status: Acute
--- NOTE | 2018-06-24 15:03 | CP.PCM.PCO ---
Assessment/Plan - Assessment/Plan Assessment (Free Text): Pt stable, dressing to RUE intact, able to move fingers, has full sensation. Dr. Alvarado made aware of wound culture results, pt to be discharged on Ertapenem 1gm daily and Vancomycin 1gm q12 x 6 weeks with weekly labs. Patient to f/u with Dr. Gill and Dr. Barbour in 1 week. Rx for abx given to CM who has made arrangements for home infusion. Cleared by Dr. Gill and Dr. Barbour for discharge. Pt aware of plan.
--- NOTE | 2018-06-24 15:04 | CP.PCM.PN ---
Subjective - Date & Time of Evaluation Date of Evaluation: 06/24/18 Time of Evaluation: 14:00 - Subjective Subjective: Patient seen and examined at bedside comfortable. Pain much improved since yesterday. No new complaints. Objective - Vital Signs/Intake and Output Vital Signs (last 24 hours): Temp Pulse Resp BP Pulse Ox 97.6 F 86 20 113/73 99 06/24/18 08:40 06/24/18 08:40 06/24/18 08:40 06/24/18 08:40 06/24/18 08:40 - Medications Medications: Current Medications Acetaminophen (Tylenol 325mg Tab) 650 mg PO Q6 PRN PRN Reason: Pain, moderate (4-7) Last Admin: 06/22/18 01:51 Dose: 650 mg Vancomycin HCl 1 gm/ Sodium (Chloride) 250 mls @ 250 mls/hr IVPB Q12H RIKKI PRN Reason: Protocol Last Admin: 06/24/18 05:51 Dose: 250 mls/hr Lactated Ringer's (Lactated Ringer's) 1,000 mls @ 100 mls/hr IV .Q10H [facility] Last Admin: 06/24/18 13:54 Dose: Not Given Ertapenem 1 gm/ Sodium (Chloride) 100 mls @ 100 mls/hr IVPB DAILY RIKKI PRN Reason: Protocol Last Admin: 06/24/18 13:51 Dose: 100 mls/hr Lactobacillus Acidophilus (Bacid Acidophilus) 1 cap PO BID RIKKI Last Admin: 06/24/18 09:49 Dose: 1 cap Morphine Sulfate (Morphine) 2 mg IVP Q4 PRN PRN Reason: Pain, severe (8-10) Last Admin: 06/23/18 15:40 Dose: 2 mg Oxycodone/Acetaminophen (Percocet 5/325 Mg Tab) 2 tab PO Q4 PRN PRN Reason: Pain, moderate (4-7) Stop: 06/25/18 10:30 Last Admin: 06/24/18 10:41 Dose: 2 tab - Labs Labs: 06/24/18 05:30 06/24/18 05:30 PT 13.1 Seconds (9.8-13.1) 06/21/18 15:45 INR 1.2 06/21/18 15:45 APTT 31.2 Seconds (25.6-37.1) 06/21/18 15:45 - Extremities Exam Additional comments: RUE: Posterior splint intact, elevated to IV pole sensation intact MN/UN/RN motor intact MN/UN/RN 2 sec cap refill Assessment and Plan (1) Septic olecranon bursitis of right elbow Assessment & Plan: POD #2 s/p R elbow I&D and arthroscopy -MRSA confirmed with OR cultures, IV abx as per ID x 4-6 weeks -PICC inserted today -OOB, PT/OT NWB RUE, maintain splint with sling -orthopedically stable for discharge today -follow up in office in 7-10 days -above d/w Dr. Barbour in agreement Status: Acute
--- NOTE | 2018-06-24 16:15 | CP.PCM.DIS ---
Provider - Provider Date of Admission: 06/21/18 17:10 Attending physician: Hilton Gill MD Time Spent in preparation of Discharge (in minutes): 20 Diagnosis - Discharge Diagnosis (1) Abscess, elbow Status: Acute (2) Cellulitis of right elbow Status: Acute (3) Microcytic anemia Status: Acute Hospital Course - Lab Results Lab Results: Micro Results 06/21/18 15:45 Blood-Venous Blood Culture - Preliminary NO GROWTH AFTER 3 DAYS 06/22/18 08:48 Elbow - Right Anaerobic Culture - Final NO ANAEROBES ISOLATED. 06/22/18 12:00 Elbow - Right Gram Stain - Final 06/22/18 12:00 Elbow - Right Anaerobic Culture - Final NO ANAEROBES ISOLATED. 06/22/18 12:00 Elbow - Right Wound Culture - Final Methicillin Resistant S Aureus 06/22/18 08:48 Other: Please Indicate Gram Stain - Final 06/22/18 08:48 Other: Please Indicate Body Fluid Culture - Final Staphylococcus Aureus 06/22/18 12:00 Elbow - Right Gram Stain - Final 06/22/18 12:00 Elbow - Right Wound Culture - Final Staphylococcus Aureus 06/22/18 12:00 Elbow - Right Gram Stain - Final 06/22/18 12:00 Elbow - Right Wound Culture - Final Staphylococcus Aureus 06/22/18 12:00 Elbow - Right Gram Stain - Final 06/22/18 12:00 Elbow - Right Wound Culture - Final Staphylococcus Aureus 06/22/18 12:00 Elbow - Right Gram Stain - Final 06/22/18 12:00 Elbow - Right Wound Culture - Final Staphylococcus Aureus 06/22/18 12:00 Elbow - Right Gram Stain - Final 06/22/18 12:00 Elbow - Right Wound Culture - Final Staphylococcus Aureus 06/22/18 12:00 Elbow - Right Gram Stain - Final 06/22/18 12:00 Elbow - Right Wound Culture - Final Staphylococcus Aureus 06/22/18 12:00 Elbow - Right Gram Stain - Final 06/22/18 12:00 Elbow - Right Wound Culture - Final Staphylococcus Aureus 06/22/18 08:30 Other: Please Indicate Mycobacterial Culture - Preliminary 06/21/18 16:00 Blood-Venous Blood Culture - Preliminary NO GROWTH AFTER 48 HOURS 06/21/18 15:45 Elbow - Right Gram Stain - Final 06/21/18 15:45 Elbow - Right Wound Culture - Final Methicillin Resistant S Aureus Most Recent Lab Values WBC 7.8 K/uL (4.8-10.8) 06/24/18 05:30 RBC 3.72 Mil/uL (4.40-5.90) L 06/24/18 05:30 Hgb 12.1 g/dL (12.0-18.0) 06/24/18 05:30 Hct 35.5 % (35.0-51.0) 06/24/18 05:30 MCV 95.4 fl (80.0-94.0) H 06/24/18 05:30 MCH 32.5 pg (27.0-31.0) H 06/24/18 05:30 MCHC 34.1 g/dL (33.0-37.0) 06/24/18 05:30 RDW 12.1 % (11.5-14.5) 06/24/18 05:30 Plt Count 176 K/uL (130-400) 06/24/18 05:30 MPV 9.9 fl (7.2-11.7) 06/23/18 05:20 Neut % (Auto) 83.4 % (50.0-75.0) H 06/23/18 05:20 Lymph % (Auto) 6.1 % (20.0-40.0) L 06/23/18 05:20 Lyman % (Auto) 10.4 % (0.0-10.0) H 06/23/18 05:20 Eos % (Auto) 0.0 % (0.0-4.0) 06/23/18 05:20 Baso % (Auto) 0.1 % (0.0-2.0) 06/23/18 05:20 Neut # (Auto) 12.5 K/uL (1.8-7.0) H 06/23/18 05:20 Lymph # (Auto) 0.9 K/uL (1.0-4.3) L 06/23/18 05:20 Lyman # (Auto) 1.6 K/uL (0.0-0.8) H 06/23/18 05:20 Eos # (Auto) 0.0 K/uL (0.0-0.7) 06/23/18 05:20 Baso # (Auto) 0.0 K/uL (0.0-0.2) 06/23/18 05:20 Neutrophils % (Manual) 85 % (42-75) H 06/23/18 05:20 Lymphocytes % (Manual) 7 % (20-50) L 06/23/18 05:20 Monocytes % (Manual) 8 % (0-10) 06/23/18 05:20 Platelet Estimate Normal (NORMAL) 06/23/18 05:20 RBC Morphology Normal (NORMAL) 06/23/18 05:20 ESR 17 mm/hr (0-15) H 06/23/18 05:20 Retic Count 1.4 % (0.5-1.5) 06/23/18 09:05 PT 13.1 Seconds (9.8-13.1) 06/21/18 15:45 INR 1.2 06/21/18 15:45 APTT 31.2 Seconds (25.6-37.1) 06/21/18 15:45 Sodium 141 mmol/l (132-148) 06/24/18 05:30 Potassium 4.4 MMOL/L (3.6-5.0) 06/24/18 05:30 Chloride 105 mmol/L (98-107) 06/24/18 05:30 Carbon Dioxide 32 mmol/L (22-30) H 06/24/18 05:30 Anion Gap 8 (10-20) L 06/24/18 05:30 BUN 14 mg/dl (9-20) 06/24/18 05:30 Creatinine 1.0 mg/dl (0.8-1.5) 06/24/18 05:30 Est GFR ( Amer) > 60 06/24/18 05:30 Est GFR (Non-Af Amer) > 60 06/24/18 05:30 Random Glucose 89 mg/dL (75-110) 06/24/18 05:30 Calcium 8.8 mg/dL (8.4-10.2) 06/24/18 05:30 Iron 23 ug/dL (49-181) L 06/23/18 09:05 TIBC 263 ug/dL (250-450) 06/23/18 09:05 % Saturation 9 % (20-55) L 06/23/18 09:05 Ferritin 187.0 ng/Ml (17.9-464) 06/23/18 09:05 Total Bilirubin 1.1 mg/dl (0.2-1.3) 06/21/18 15:45 AST 22 U/L (17-59) 06/21/18 15:45 ALT 25 U/L (21-72) 06/21/18 15:45 Alkaline Phosphatase 65 U/L (38-126) 06/21/18 15:45 Total Protein 7.2 G/DL (6.3-8.2) 06/21/18 15:45 Albumin 4.1 g/dL (3.5-5.0) 06/21/18 15:45 Globulin 3.1 gm/dL (2.2-3.9) 06/21/18 15:45 Albumin/Globulin Ratio 1.3 (1.0-2.1) 06/21/18 15:45 Procalcitonin < 0.05 NG/ML (0.19-0.49) L 06/23/18 08:30 Fluid Type Synovial fluid 06/22/18 08:30 Synovial WBC 55001.0 /mm3 (0.0-150.0) H 06/22/18 08:30 Synovial RBC 37290.0 /mm3 (0.0-0.0) H 06/22/18 08:30 Synovial Neutrophils 71.0 % (0-0) H 06/22/18 08:30 Synovial Lymphocytes 17.0 % (0-0) H 06/22/18 08:30 Synov Monos/Macrophage 12 % (0-0) H 06/22/18 08:30 Synovial Fluid Comment Moderately bloody 06/22/18 08:30 Vancomycin Trough < 5.0 ug/mL (5.0-10.0) L 06/24/18 05:00 - Hospital Course Hospital Course: Pt was seen and examined at bedside with Dr. Gill 22 yo M with no sig pmhx admitted for cellulitis of R elbow Ortho: Dr. Barbour Arthroscopy with I&D of R elbow POD 2 ID: Dr. Alvarado; Pt will require 6 weeks Ertapenem and vancomycin d/c home f/u Dr. Burgos in [address] Bridget Fung MD PGY2 Discharge Exam - Eye Exam Eye Exam: EOMI - Respiratory Exam Respiratory Exam: NORMAL BREATHING PATTERN - Cardiovascular Exam Cardiovascular Exam: +S1, +S2 - Neurological Exam Neurological exam: Alert, CN II-XII Intact, Oriented x3 - Psychiatric Exam Psychiatric exam: Normal Affect, Normal Mood Discharge Plan - Discharge Medications Prescriptions: Ertapenem 1gm in NS 50ml [Invanz] 1 gm IVPB DAILY #42 bag Ibuprofen [Motrin] 600 mg PO Q6 PRN #30 tab PRN Reason: Pain, Moderate (4-7) Vancomycin [Vancomycin Inj] 1 gm IVPB Q12 #84 vial - Follow Up Plan Condition: STABLE Disposition: HOME/ ROUTINE Instructions: Methicillin-Resistant Staphylococcus aureus (MRSA) Additional Instructions: Non-weight bearing to R upper extremity Keep R arm elevated Keep R arm on sling when ambulating Follow-up with Dr. Barbour in 1 week - call office for appointment
[2018-06-24 16:22] VITALS: BP 130/69; PULSE 68; RESP 18; TEMP 98; O2SAT 98
== END 2018-06-24 18:50 | disposition home or self-care (01) | DRG 501 ==
LOC: H.ER 14:32 → H.ERHOLD 17:10 → H.MEDSURG1 18:15
PROVIDERS: ADMIT Internal Medicine; ATTEND Internal Medicine
PROC: 0RBL4ZZ Excision of Right Elbow Joint, Percutaneous Endoscopic Approach (ICD-10-PCS; 2018-06-22)
PROC: 0MB30ZZ Excision of Right Elbow Bursa and Ligament, Open Approach (ICD-10-PCS; 2018-06-22)
PROC: 3E0T3BZ Introduction of Anesthetic Agent into Peripheral Nerves and Plexi, Percutaneous Approach (ICD-10-PCS; 2018-06-22)
PROC: 0R9 Upper Joints, Drainage (ICD-10-PCS; principal; 2018-06-22 07:30)
PROC: 0KB70ZZ Excision of Right Upper Arm Muscle, Open Approach (ICD-10-PCS; 2018-06-22 07:30)
PROC: 02HV33Z Insertion of Infusion Device into Superior Vena Cava, Percutaneous Approach (ICD-10-PCS; 2018-06-23)
DX: M00.021 Staphylococcal arthritis, right elbow (principal); L03.113 Cellulitis of right upper limb; B95.62 Methicillin resistant Staphylococcus aureus infection as the cause of diseases classified elsewhere; M65.9 Synovitis and tenosynovitis, unspecified; D50.9 Iron deficiency anemia, unspecified; M71.121 Other infective bursitis, right elbow